=== PATIENT | female | born 1960 | race Two or more races ===

== ENCOUNTER 2023-06-03 14:14 | Inpatient (IN) | payer MEDICARE, OTHER ==
[2023-06-03] VITALS (19 sets, daily range): BP systolic 76–122; BP diastolic 42–79; TEMP 95.7; O2SAT 94–100
[~2023-06-03] VITALS: Ht 157.5 cm; Wt 122.5 kg
[2023-06-03] MEDS ORDERED: MIDODRINE HCL (5MG) 5 MG TABLET PO SCH (14:30)
[2023-06-03] MEDS ORDERED: MIDODRINE HCL (5MG) 5 MG TABLET ONE (14:46)
[2023-06-03] MEDS ORDERED: CEFEPIME 2 GM in IV D5W 50 ML IV ONE (15:00)
[2023-06-03] MEDS ORDERED: VANCOMYCIN 1 GM in IV D5W 250 ML IV ONE (15:00)
[2023-06-03] MEDS: IV NS 0.9% 500 ML BAG IV ONE ×2 (15:21→15:35)
[2023-06-03 16:29] LABS: BASOPHILS % (AUTO) 0.1 % (0.0-2.0); EOSINOPHILS % (AUTO) 0.1 % (0.0-6.0); HEMATOCRIT 24 % (33-45); HEMOGLOBIN 7.6 g/dL (11.5-14.8); LYMPHOCYTES % (AUTO) 4.4 % (20.0-44.0); MEAN CORPUSCULAR HEMOGLOBIN 31 PG (26.0-33.0); MEAN CORPUSCULAR HGB CONC 31 g/dl (31.0-36.0); MEAN CORPUSCULAR VOLUME 100 fL (82-100); MONOCYTES # (AUTO) 0.4 K/uL (0.1-1.30); MONOCYTES % (AUTO) 1.8 % (2.0-12.0); NEUTROPHILS # (AUTO) 21.7 K/uL (1.8-8.9); NEUTROPHILS % (AUTO) 93.6 % (43.0-81.0); PLATELET COUNT (AUTO) 129 K/uL (150-450); RED BLOOD CELL COUNT(AUTO) 2.44 MIL/uL (4.0-5.2); RED CELL DISTRIBUTION WIDTH 16.2 % (11.5-15.0); WHITE BLOOD COUNT (AUTO) 23.2 K/uL (4.3-11.0)
[2023-06-03] MEDS ORDERED: CEFEPIME 2 GM in IV D5W 100 ML IV ONE (16:30)
[2023-06-03] MEDS ORDERED: CLON0.1T PO (16:42)
[2023-06-03] MEDS ORDERED: DIPH25TA25 PO (16:42)
[2023-06-03] MEDS ORDERED: ATOR20TA PO (16:42)
[2023-06-03] MEDS ORDERED: ACET-868 PO (16:42)
[2023-06-03] MEDS ORDERED: BETH5TAB2 PO (16:42)
[2023-06-03] MEDS ORDERED: CALC-494 PO (16:42)
[2023-06-03] MEDS ORDERED: VANC125C11 PO (16:42)
[2023-06-03] MEDS ORDERED: LACT1CAP89 PO (16:42)
[2023-06-03] MEDS ORDERED: ASPI-1169 PO (16:42)
[2023-06-03] MEDS ORDERED: PHEN177S31 PO (16:42)
[2023-06-03] MEDS ORDERED: IPRA3AMP22 IH (16:42)
[2023-06-03] MEDS ORDERED: INSU100V39 SQ (16:42)
[2023-06-03] MEDS ORDERED: NUT.237L67 PO (16:42)
[2023-06-03] MEDS ORDERED: CARV25TA2 PO (16:42)
[2023-06-03] MEDS ORDERED: CLON1PAT TD (16:42)
[2023-06-03] MEDS ORDERED: MENT7.5L3 PO (16:42)
[2023-06-03] MEDS ORDERED: FOLI0.8T23 PO (16:42)
[2023-06-03] MEDS ORDERED: FAMO20TA8 PO (16:42)
[2023-06-03] MEDS ORDERED: TRAM100T39 PO (16:42)
[2023-06-03] MEDS ORDERED: METO5TAB2 PO (16:42)
[2023-06-03] MEDS ORDERED: PROC10TA13 PO (16:42)
[2023-06-03 16:47] LABS: ALANINE AMINOTRANSFERASE < 6 U/L (12-78); ALKALINE PHOSPHATASE 313 U/L (46-116); ASPARTATE AMINOTRANSFERASE 14 U/L (15-37); BILIRUBIN,DIRECT 0.5 mg/dL (0.0-0.2); BILIRUBIN,TOTAL 0.9 mg/dL (0.2-1.0); CALCIUM, SERUM 6.8 mg/dL (8.5-10.1); CARBON DIOXIDE 23 mmol/L (21-32); CHLORIDE 102 mmol/L (98-107); GLUCOSE 124 mg/dL (74-106); SODIUM SERUM 131 mmol/L (136-145); TOTAL PROTEIN, SERUM 3.9 g/dL (6.4-8.2); UREA NITROGEN, BLOOD 12 mg/dL (7-18)
[2023-06-03 16:49] LABS: INR 1.68 (0.91-1.10); PARTIAL THROMBOPLASTIN TIME 53.4 SEC (24.3-34.3); PROTHROMBIN TIME 17.2 SECS (9.2-11.1)
[2023-06-03 16:51] LABS: LACTIC ACID 1.3 mmol/L (0.4-2.0)
[2023-06-03] MEDS ORDERED: AZITHROMYCIN 500 MG in IV D5W 250 ML IV ONE (17:00)
[2023-06-03] MEDS ORDERED: NOREPINEPHRINE 8 MG in IV NS 0.9% 250 ML IV ONE (17:00)
[2023-06-03 17:04] LABS: ALBUMIN 1.2 g/dL (3.4-5.0); POTASSIUM 2.4 mmol/L (3.5-5.1)
[2023-06-03] MEDS ORDERED: ONDANSETRON HCL/PF 4 MG/2 ML VIAL IVP PRN (17:30)
[2023-06-03] MEDS ORDERED: POTASSIUM CHLORIDE 20 MEQ TAB.PRT.SR PO ONE (17:30)
[2023-06-03] MEDS ORDERED: PHENYLEPHRINE 100 MG in IV NS 0.9% 240 ML IV PRN (17:30)
[2023-06-03] MEDS ORDERED: MAG HYDROX/AL HYDROX/SIMETH 30 ML UDC PO PRN (17:30)
[2023-06-03] MEDS ORDERED: CLONIDINE HCL 0.1 MG TABLET PO PRN (17:30)
[2023-06-03] MEDS ORDERED: ACETAMINOPHEN 325 MG TABLET PO PRN ×2 (17:30)
[2023-06-03] MEDS ORDERED: ZOLPIDEM TARTRATE 5 MG TABLET PO PRN (17:30)
[2023-06-03] MEDS: BLOOD SUGAR DIAGNOSTIC 1 EACH STRIP IN SCH ×2 (17:30→21:32)
[2023-06-03] MEDS ORDERED: MAGNESIUM HYDROXIDE 30 ML UDC PO PRN (17:30)
[2023-06-03] MEDS ORDERED: DEXTROSE 50%-WATER 50 ML DISP.SYRIN IV PRN (17:30)
[2023-06-03] MEDS: ALBUTEROL FS 2.5 MG/0.5 ML VIAL.NEB NEB SCH (20:50)
[2023-06-03] MEDS: IPRATROPIUM NEB FS 0.5 MG/2.5 ML AMPUL.NEB NEB SCH (20:50)
[2023-06-03] MEDS: CARVEDILOL 12.5 MG TABLET PO SCH (21:00)
[2023-06-03] MEDS: NEPRO VAN 237 ML CAN PO SCH (21:00)
[2023-06-03] MEDS: NOREPINEPHRINE 8 MG in IV NS 0.9% 242 ML IV PRN (21:04)
[2023-06-03] MEDS: IV NS 0.9% 250 ML IV PRN (21:06)
[2023-06-03] MEDS: METRONIDAZOLE 500MG/ NS 100ML 500 MG in PREMIX 1 EA IV SCH (21:06)
[2023-06-03] MEDS: Z GUARD REMEDY 4 OZ OINT TP SCH (21:26)
[2023-06-03] MEDS: ATORVASTATIN 40 MG TABLET PO SCH (23:07)
[2023-06-04] VITALS (106 sets, daily range): BP systolic 64–167; BP diastolic 31–152; TEMP 97.5–98.1; O2SAT 84–100
[2023-06-04] MEDS: NOREPINEPHRINE 8 MG in IV NS 0.9% 242 ML IV PRN ×5 (00:43→17:11)
[2023-06-04] MEDS: IPRATROPIUM NEB FS 0.5 MG/2.5 ML AMPUL.NEB NEB SCH ×4 (00:45→19:33)
[2023-06-04] MEDS: ALBUTEROL FS 2.5 MG/0.5 ML VIAL.NEB NEB SCH ×4 (00:45→19:33)
[2023-06-04 04:59] LABS: BASOPHILS % (AUTO) 0.1 % (0.0-2.0); HEMATOCRIT 27 % (33-45); HEMOGLOBIN 8.6 g/dL (11.5-14.8); LYMPHOCYTES # (AUTO) 1.1 K/uL (0.8-4.8); LYMPHOCYTES % (AUTO) 3.8 % (20.0-44.0); MEAN CORPUSCULAR HEMOGLOBIN 31 PG (26.0-33.0); MEAN CORPUSCULAR HGB CONC 32 g/dl (31.0-36.0); MEAN CORPUSCULAR VOLUME 99 fL (82-100); MONOCYTES # (AUTO) 0.6 K/uL (0.1-1.30); MONOCYTES % (AUTO) 2.1 % (2.0-12.0); NEUTROPHILS # (AUTO) 27.5 K/uL (1.8-8.9); PLATELET COUNT (AUTO) 182 K/uL (150-450); RED BLOOD CELL COUNT(AUTO) 2.75 MIL/uL (4.0-5.2); RED CELL DISTRIBUTION WIDTH 16.1 % (11.5-15.0); WHITE BLOOD COUNT (AUTO) 29.3 K/uL (4.3-11.0)
[2023-06-04] MEDS ORDERED: NOREPINEPHRINE 8MG/250ML RTU 250 ML IV ONE (05:07)
[2023-06-04] MEDS: METRONIDAZOLE 500MG/ NS 100ML 500 MG in PREMIX 1 EA IV SCH ×2 (05:12→12:28)
[2023-06-04 05:23] LABS: ALANINE AMINOTRANSFERASE < 6 U/L (12-78); ALKALINE PHOSPHATASE 357 U/L (46-116); ASPARTATE AMINOTRANSFERASE 21 U/L (15-37); BILIRUBIN,TOTAL 1.1 mg/dL (0.2-1.0); CALCIUM, SERUM 7.2 mg/dL (8.5-10.1); CARBON DIOXIDE 23 mmol/L (21-32); CHLORIDE 99 mmol/L (98-107); CREATININE 3.1 mg/dL (0.6-1.3); GLUCOSE 191 mg/dL (74-106); MAGNESIUM 1.8 mg/dL (1.8-2.4); PHOSPHORUS 3.6 mg/dL (2.5-4.9); SODIUM SERUM 132 mmol/L (136-145); TOTAL PROTEIN, SERUM 4.5 g/dL (6.4-8.2); UREA NITROGEN, BLOOD 13 mg/dL (7-18)
[2023-06-04 05:31] LABS: ALBUMIN 1.4 g/dL (3.4-5.0); POTASSIUM 2.4 mmol/L (3.5-5.1)
[2023-06-04] MEDS: POTASSIUM CL. PREMIX PERIPHER. 50 ML IV SCH ×10 (06:56→16:14)
[2023-06-04] MEDS: INSULIN REGULAR, HUMAN 100 UNIT/ML 3 ML VIAL SQ PRN ×3 (08:19→18:08)
[2023-06-04] MEDS: BLOOD SUGAR DIAGNOSTIC 1 EACH STRIP IN SCH ×4 (08:21→21:34)
[2023-06-04] MEDS: ACIDOPHILUS/BULGARICUS 1 EACH TAB.CHEW PO SCH ×2 (08:36→17:56)
[2023-06-04] MEDS: BETHANECHOL CHLORIDE (25 MG) 25 MG TABLET PO SCH ×3 (08:36→17:56)
[2023-06-04] MEDS: CALCIUM CARB 600MG /VIT D 1 EACH TABLET PO SCH ×2 (08:36→17:56)
[2023-06-04] MEDS: VIT B CMPLX 3/FA/VIT C/BIOTIN 1 TAB TABLET PO SCH (08:36)
[2023-06-04] MEDS: Z GUARD REMEDY 4 OZ OINT TP SCH ×2 (08:37→21:08)
[2023-06-04] MEDS: ASPIRIN 81 MG TAB.CHEW PO SCH (08:37)
[2023-06-04] MEDS ORDERED: PANTOPRAZOLE 40 MG VIAL IV SCH (09:00)
[2023-06-04] MEDS ORDERED: VANCOMYCIN 500 MG in IV D5W 100 ML IV PRN (09:00)
[2023-06-04] MEDS: CARVEDILOL 12.5 MG TABLET PO SCH ×2 (09:00→21:00)
[2023-06-04] MEDS ORDERED: BETHANECHOL CHLORIDE 5 MG TABLET PO SCH (09:00)
[2023-06-04] MEDS: PROSOURCE / PROSTAT (PYXIS) 30 ML UDC PO SCH ×2 (12:44→17:56)
[2023-06-04] MEDS: IV NS 0.9% 250 ML IV PRN (12:56)
[2023-06-04] MEDS: DAKINS QUARTER STRENGTH (0.125%) 480 ML BOTTLE TOP SCH (15:11)
[2023-06-04] MEDS: EPOETIN ALFA-EPBX 4,000 UNIT/ML VIAL SQ SCH (15:12)
[2023-06-04] MEDS: CEFEPIME 1 GM in IV D5W 50 ML IV SCH (15:13)
[2023-06-04] MEDS ORDERED: EPOETIN ALFA-EPBX 10,000 UNIT/ML VIAL IV ONE (17:00)
[2023-06-04] MEDS: NEPRO VAN 237 ML CAN PO SCH (17:57)
[2023-06-04] MEDS: CLOTRIMAZOLE 1% 15 GM TUBE TP SCH (17:57)
[2023-06-04] MEDS: CADEXOMER IODINE 40 GM TUBE TP SCH (17:58)
[2023-06-04] MEDS: BACITRACIN ZINC OINT (15 GM) 15 GM TUBE TP SCH (18:03)
[2023-06-04] MEDS ORDERED: VANCOMYCIN 500 MG in IV D5W 100ml IV ONE (21:00)
[2023-06-04] MEDS: ATORVASTATIN 40 MG TABLET PO SCH (21:06)
[2023-06-04] MEDS: METRONIDAZOLE 500 MG TABLET PO SCH (21:06)
[2023-06-04] MEDS ORDERED: NOREPINEPHRINE 32 MG in IV NS 0.9% 250 ML IV PRN (22:00)
[2023-06-04] MEDS ORDERED: VANCOMYCIN 1 GM in IV D5W 250ml IV ONE (22:00)
[2023-06-05] VITALS (102 sets, daily range): BP systolic 86–135; BP diastolic 36–99; TEMP 97.8–98.1; O2SAT 77–100
[2023-06-05] MEDS: IPRATROPIUM NEB FS 0.5 MG/2.5 ML AMPUL.NEB NEB SCH ×4 (01:15→19:22)
[2023-06-05] MEDS: ALBUTEROL FS 2.5 MG/0.5 ML VIAL.NEB NEB SCH ×4 (01:15→19:22)
[2023-06-05 03:37] LABS: BASOPHILS % (AUTO) 0.2 % (0.0-2.0); EOSINOPHILS % (AUTO) 0.1 % (0.0-6.0); HEMATOCRIT 25 % (33-45); HEMOGLOBIN 8.1 g/dL (11.5-14.8); LYMPHOCYTES # (AUTO) 1.4 K/uL (0.8-4.8); LYMPHOCYTES % (AUTO) 6.2 % (20.0-44.0); MEAN CORPUSCULAR HEMOGLOBIN 32 PG (26.0-33.0); MEAN CORPUSCULAR HGB CONC 33 g/dl (31.0-36.0); MEAN CORPUSCULAR VOLUME 97 fL (82-100); MONOCYTES # (AUTO) 0.6 K/uL (0.1-1.30); MONOCYTES % (AUTO) 2.9 % (2.0-12.0); NEUTROPHILS # (AUTO) 20.2 K/uL (1.8-8.9); NEUTROPHILS % (AUTO) 90.6 % (43.0-81.0); PLATELET COUNT (AUTO) 160 K/uL (150-450); RED BLOOD CELL COUNT(AUTO) 2.57 MIL/uL (4.0-5.2); RED CELL DISTRIBUTION WIDTH 15.7 % (11.5-15.0); WHITE BLOOD COUNT (AUTO) 22.3 K/uL (4.3-11.0)
[2023-06-05 03:59] LABS: CALCIUM, SERUM 7.4 mg/dL (8.5-10.1); CREATININE 2.6 mg/dL (0.6-1.3); POTASSIUM 3.9 mmol/L (3.5-5.1)
[2023-06-05] MEDS: METRONIDAZOLE 500 MG TABLET PO SCH ×3 (05:06→21:10)
[2023-06-05] MEDS: INSULIN REGULAR, HUMAN 100 UNIT/ML 3 ML VIAL SQ PRN ×2 (07:58→13:03)
[2023-06-05] MEDS: BLOOD SUGAR DIAGNOSTIC 1 EACH STRIP IN SCH ×4 (07:59→21:17)
[2023-06-05] MEDS: VIT B CMPLX 3/FA/VIT C/BIOTIN 1 TAB TABLET PO SCH (08:27)
[2023-06-05] MEDS: CALCIUM CARB 600MG /VIT D 1 EACH TABLET PO SCH ×2 (08:27→17:53)
[2023-06-05] MEDS: ASPIRIN 81 MG TAB.CHEW PO SCH (08:27)
[2023-06-05] MEDS: ACIDOPHILUS/BULGARICUS 1 EACH TAB.CHEW PO SCH ×2 (08:28→17:53)
[2023-06-05] MEDS: BETHANECHOL CHLORIDE (25 MG) 25 MG TABLET PO SCH ×3 (08:29→17:53)
[2023-06-05] MEDS: PROSOURCE / PROSTAT (PYXIS) 30 ML UDC PO SCH ×3 (08:30→17:55)
[2023-06-05] MEDS: PANTOPRAZOLE 40 MG TABLET.DR PO SCH (08:36)
[2023-06-05] MEDS: DAKINS QUARTER STRENGTH (0.125%) 480 ML BOTTLE TOP SCH (09:32)
[2023-06-05] MEDS: BACITRACIN ZINC OINT (15 GM) 15 GM TUBE TP SCH ×2 (09:32→17:58)
[2023-06-05] MEDS: CLOTRIMAZOLE 1% 15 GM TUBE TP SCH ×2 (09:32→17:58)
[2023-06-05] MEDS: CADEXOMER IODINE 40 GM TUBE TP SCH (09:33)
[2023-06-05] MEDS: Z GUARD REMEDY 4 OZ OINT TP SCH ×2 (09:34→21:10)
[2023-06-05] MEDS: CARVEDILOL 12.5 MG TABLET PO SCH ×2 (09:40→20:29)
[2023-06-05] MEDS: ALBUMIN 25% 25 GM in PREMIX 1 EA IV SCH ×3 (10:59→20:55)
[2023-06-05] MEDS: IV NS 0.9% 250 ML IV PRN (11:05)
[2023-06-05] MEDS: EPOETIN ALFA-EPBX 4,000 UNIT/ML VIAL SQ SCH (15:35)
[2023-06-05] MEDS: CEFEPIME 1 GM in IV D5W 50 ML IV SCH (15:38)
[2023-06-05] MEDS: FAMOTIDINE (20 MG) 20 MG TABLET PO SCH (17:53)
[2023-06-05] MEDS: NEPRO VAN 237 ML CAN PO SCH (17:55)
[2023-06-05] MEDS ORDERED: NOREPINEPHRINE 8 MG in IV NS 0.9% 250ML IV PRN (21:00)
[2023-06-05] MEDS: ATORVASTATIN 40 MG TABLET PO SCH (21:08)
[2023-06-06] VITALS (81 sets, daily range): BP systolic 59–136; BP diastolic 30–98; TEMP 95.6–97.7; O2SAT 90–100
[2023-06-06] MEDS: ALBUTEROL FS 2.5 MG/0.5 ML VIAL.NEB NEB SCH ×4 (01:13→19:37)
[2023-06-06] MEDS: IPRATROPIUM NEB FS 0.5 MG/2.5 ML AMPUL.NEB NEB SCH ×4 (01:13→19:37)
[2023-06-06] MEDS: ALBUMIN 25% 25 GM in PREMIX 1 EA IV SCH (03:59)
[2023-06-06 04:56] LABS: BASOPHILS % (AUTO) 0.1 % (0.0-2.0); EOSINOPHILS % (AUTO) 0.1 % (0.0-6.0); LYMPHOCYTES # (AUTO) 0.9 K/uL (0.8-4.8); LYMPHOCYTES % (AUTO) 6.2 % (20.0-44.0); MEAN CORPUSCULAR HEMOGLOBIN 32 PG (26.0-33.0); MEAN CORPUSCULAR HGB CONC 32 g/dl (31.0-36.0); MEAN CORPUSCULAR VOLUME 98 fL (82-100); MONOCYTES # (AUTO) 0.3 K/uL (0.1-1.30); MONOCYTES % (AUTO) 2.3 % (2.0-12.0); NEUTROPHILS # (AUTO) 13.4 K/uL (1.8-8.9); NEUTROPHILS % (AUTO) 91.3 % (43.0-81.0); PLATELET COUNT (AUTO) 88 K/uL (150-450); RED CELL DISTRIBUTION WIDTH 16.6 % (11.5-15.0); WHITE BLOOD COUNT (AUTO) 14.7 K/uL (4.3-11.0)
[2023-06-06] MEDS: IV NS 0.9% 250 ML IV PRN ×2 (05:00→20:32)
[2023-06-06 05:05] LABS: RED BLOOD CELL COUNT(AUTO) 1.97 MIL/uL (4.0-5.2)
[2023-06-06] MEDS: METRONIDAZOLE 500 MG TABLET PO SCH ×3 (05:05→20:42)
[2023-06-06 05:06] LABS: HEMOGLOBIN 6.2 g/dL (11.5-14.8)
[2023-06-06 05:07] LABS: HEMATOCRIT 19 % (33-45)
[2023-06-06 05:12] LABS: CALCIUM, SERUM 8.8 mg/dL (8.5-10.1); CREATININE 1.9 mg/dL (0.6-1.3); POTASSIUM 3.1 mmol/L (3.5-5.1)
[2023-06-06 05:33] LABS: LYMPHOCYTES % (MANUAL) 4 % (16-48); MONOCYTES % (MANUAL) 3 % (0-11.0); NEUTROPHILS % (MANUAL) 93 (42-76)
[2023-06-06 05:34] LABS: ANISOCYTOSIS 1+; HYPOCHROMASIA 3+
[2023-06-06] MEDS: BLOOD SUGAR DIAGNOSTIC 1 EACH STRIP IN SCH ×4 (07:31→20:58)
[2023-06-06] MEDS: BETHANECHOL CHLORIDE (25 MG) 25 MG TABLET PO SCH ×3 (08:06→16:48)
[2023-06-06] MEDS: CALCIUM CARB 600MG /VIT D 1 EACH TABLET PO SCH ×2 (08:06→16:48)
[2023-06-06] MEDS: ASPIRIN 81 MG TAB.CHEW PO SCH (08:06)
[2023-06-06] MEDS: PANTOPRAZOLE 40 MG TABLET.DR PO SCH (08:06)
[2023-06-06] MEDS: ACIDOPHILUS/BULGARICUS 1 EACH TAB.CHEW PO SCH ×2 (08:06→16:48)
[2023-06-06] MEDS: VIT B CMPLX 3/FA/VIT C/BIOTIN 1 TAB TABLET PO SCH (08:06)
[2023-06-06] MEDS: CARVEDILOL 12.5 MG TABLET PO SCH (08:07)
[2023-06-06] MEDS: DAKINS QUARTER STRENGTH (0.125%) 480 ML BOTTLE TOP SCH (08:08)
[2023-06-06] MEDS: BACITRACIN ZINC OINT (15 GM) 15 GM TUBE TP SCH ×2 (08:09→17:11)
[2023-06-06] MEDS: CADEXOMER IODINE 40 GM TUBE TP SCH (08:09)
[2023-06-06] MEDS: CLOTRIMAZOLE 1% 15 GM TUBE TP SCH ×2 (08:10→16:49)
[2023-06-06] MEDS: Z GUARD REMEDY 4 OZ OINT TP SCH ×2 (08:10→20:43)
[2023-06-06] MEDS: PROSOURCE / PROSTAT (PYXIS) 30 ML UDC PO SCH ×3 (08:11→16:48)
[2023-06-06] MEDS: POTASSIUM CL. PREMIX PERIPHER. 50 ML IV SCH ×3 (11:20→13:47)
[2023-06-06] MEDS: INSULIN REGULAR, HUMAN 100 UNIT/ML 3 ML VIAL SQ PRN ×3 (11:40→20:59)
[2023-06-06] MEDS: EPOETIN ALFA-EPBX 4,000 UNIT/ML VIAL SQ SCH (14:25)
[2023-06-06] MEDS: CEFEPIME 1 GM in IV D5W 50 ML IV SCH (16:47)
[2023-06-06] MEDS: NEPRO VAN 237 ML CAN PO SCH (17:12)
[2023-06-06 19:24] LABS: HEMOGLOBIN 7.4 g/dL (11.5-14.8)
[2023-06-06] MEDS: ATORVASTATIN 40 MG TABLET PO SCH (20:42)
[2023-06-07] VITALS (20 sets, daily range): BP systolic 92–133; BP diastolic 57–85; TEMP 96.7–97.6; O2SAT 98–100
[2023-06-07] MEDS: IPRATROPIUM NEB FS 0.5 MG/2.5 ML AMPUL.NEB NEB SCH ×5 (01:07→23:13)
[2023-06-07] MEDS: ALBUTEROL FS 2.5 MG/0.5 ML VIAL.NEB NEB SCH ×4 (01:07→19:30)
[2023-06-07] MEDS: METRONIDAZOLE 500 MG TABLET PO SCH ×3 (05:55→21:40)
[2023-06-07 05:56] LABS: BASOPHILS % (AUTO) 0.1 % (0.0-2.0); EOSINOPHILS % (AUTO) 0.3 % (0.0-6.0); HEMATOCRIT 23 % (33-45); HEMOGLOBIN 7.4 g/dL (11.5-14.8); LYMPHOCYTES % (AUTO) 7.6 % (20.0-44.0); MEAN CORPUSCULAR HEMOGLOBIN 31 PG (26.0-33.0); MEAN CORPUSCULAR HGB CONC 32 g/dl (31.0-36.0); MEAN CORPUSCULAR VOLUME 95 fL (82-100); MONOCYTES # (AUTO) 0.4 K/uL (0.1-1.30); MONOCYTES % (AUTO) 2.9 % (2.0-12.0); NEUTROPHILS # (AUTO) 11.8 K/uL (1.8-8.9); NEUTROPHILS % (AUTO) 89.1 % (43.0-81.0); PLATELET COUNT (AUTO) 76 K/uL (150-450); RED BLOOD CELL COUNT(AUTO) 2.43 MIL/uL (4.0-5.2); RED CELL DISTRIBUTION WIDTH 18.5 % (11.5-15.0); WHITE BLOOD COUNT (AUTO) 13.2 K/uL (4.3-11.0)
[2023-06-07 06:54] LABS: CREATININE 2.3 mg/dL (0.6-1.3); POTASSIUM 3.2 mmol/L (3.5-5.1)
[2023-06-07 07:02] LABS: LYMPHOCYTES % (MANUAL) 10 % (16-48); MONOCYTES % (MANUAL) 3 % (0-11.0); NEUTROPHILS % (MANUAL) 87 (42-76); PLATELET ESTIMATE DECREASED
[2023-06-07 07:03] LABS: ANISOCYTOSIS 1+; HYPOCHROMASIA 1+
[2023-06-07] MEDS: BLOOD SUGAR DIAGNOSTIC 1 EACH STRIP IN SCH ×4 (08:14→21:57)
[2023-06-07] MEDS: CALCIUM CARB 600MG /VIT D 1 EACH TABLET PO SCH ×2 (09:03→17:24)
[2023-06-07] MEDS: BETHANECHOL CHLORIDE (25 MG) 25 MG TABLET PO SCH ×3 (09:03→17:24)
[2023-06-07] MEDS: ASPIRIN 81 MG TAB.CHEW PO SCH (09:03)
[2023-06-07] MEDS: VIT B CMPLX 3/FA/VIT C/BIOTIN 1 TAB TABLET PO SCH (09:03)
[2023-06-07] MEDS: ACIDOPHILUS/BULGARICUS 1 EACH TAB.CHEW PO SCH ×2 (09:03→17:24)
[2023-06-07] MEDS: PANTOPRAZOLE 40 MG TABLET.DR PO SCH (09:03)
[2023-06-07] MEDS: DAKINS QUARTER STRENGTH (0.125%) 480 ML BOTTLE TOP SCH (09:04)
[2023-06-07] MEDS: PROSOURCE / PROSTAT (PYXIS) 30 ML UDC PO SCH ×3 (09:04→17:27)
[2023-06-07] MEDS: CADEXOMER IODINE 40 GM TUBE TP SCH (09:05)
[2023-06-07] MEDS: BACITRACIN ZINC OINT (15 GM) 15 GM TUBE TP SCH ×2 (09:05→17:26)
[2023-06-07] MEDS: CLOTRIMAZOLE 1% 15 GM TUBE TP SCH ×2 (09:05→17:34)
[2023-06-07] MEDS: Z GUARD REMEDY 4 OZ OINT TP SCH ×2 (09:05→21:45)
[2023-06-07] MEDS: POTASSIUM CL. PREMIX PERIPHER. 50 ML IV SCH ×3 (11:05→13:00)
[2023-06-07] MEDS ORDERED: VANCOMYCIN 1 GM in IV D5W 250ml IV ONE (14:00)
[2023-06-07] MEDS: EPOETIN ALFA-EPBX 4,000 UNIT/ML VIAL SQ SCH (15:21)
[2023-06-07] MEDS: CEFEPIME 1 GM in IV D5W 50 ML IV SCH (16:38)
[2023-06-07] MEDS: FAMOTIDINE (20 MG) 20 MG TABLET PO SCH (17:24)
[2023-06-07] MEDS: INSULIN REGULAR, HUMAN 100 UNIT/ML 3 ML VIAL SQ PRN (17:25)
[2023-06-07] MEDS: NEPRO VAN 237 ML CAN PO SCH (18:00)
[2023-06-07] MEDS: ATORVASTATIN 40 MG TABLET PO SCH (21:26)
[2023-06-08] VITALS (9 sets, daily range): BP systolic 121–145; BP diastolic 77–89; TEMP 96.7–98.6; O2SAT 96–100
[2023-06-08] MEDS: ALBUTEROL FS 2.5 MG/0.5 ML VIAL.NEB NEB SCH ×4 (01:30→19:36)
[2023-06-08] MEDS: METRONIDAZOLE 500 MG TABLET PO SCH ×3 (04:38→21:32)
[2023-06-08] MEDS: BLOOD SUGAR DIAGNOSTIC 1 EACH STRIP IN SCH ×4 (06:33→22:36)
[2023-06-08] MEDS: IPRATROPIUM NEB FS 0.5 MG/2.5 ML AMPUL.NEB NEB SCH ×3 (07:52→19:36)
[2023-06-08 09:32] LABS: BASOPHILS % (AUTO) 0.1 % (0.0-2.0); EOSINOPHILS # (AUTO) 0.1 K/uL (0.0-0.7); EOSINOPHILS % (AUTO) 0.6 % (0.0-6.0); HEMATOCRIT 31 % (33-45); HEMOGLOBIN 10.2 g/dL (11.5-14.8); LYMPHOCYTES # (AUTO) 1.1 K/uL (0.8-4.8); LYMPHOCYTES % (AUTO) 9.8 % (20.0-44.0); MEAN CORPUSCULAR HEMOGLOBIN 31 PG (26.0-33.0); MEAN CORPUSCULAR HGB CONC 33 g/dl (31.0-36.0); MEAN CORPUSCULAR VOLUME 93 fL (82-100); MONOCYTES # (AUTO) 0.4 K/uL (0.1-1.30); MONOCYTES % (AUTO) 3.7 % (2.0-12.0); NEUTROPHILS # (AUTO) 9.6 K/uL (1.8-8.9); NEUTROPHILS % (AUTO) 85.8 % (43.0-81.0); PLATELET COUNT (AUTO) 75 K/uL (150-450); RED BLOOD CELL COUNT(AUTO) 3.34 MIL/uL (4.0-5.2); RED CELL DISTRIBUTION WIDTH 18.1 % (11.5-15.0); WHITE BLOOD COUNT (AUTO) 11.1 K/uL (4.3-11.0)
[2023-06-08] MEDS: BETHANECHOL CHLORIDE (25 MG) 25 MG TABLET PO SCH ×4 (09:44→17:37)
[2023-06-08] MEDS: CALCIUM CARB 600MG /VIT D 1 EACH TABLET PO SCH ×3 (09:44→17:37)
[2023-06-08] MEDS: ASPIRIN 81 MG TAB.CHEW PO SCH (09:44)
[2023-06-08] MEDS: DAKINS QUARTER STRENGTH (0.125%) 480 ML BOTTLE TOP SCH (09:44)
[2023-06-08] MEDS: VIT B CMPLX 3/FA/VIT C/BIOTIN 1 TAB TABLET PO SCH (09:44)
[2023-06-08] MEDS: PANTOPRAZOLE 40 MG TABLET.DR PO SCH (09:44)
[2023-06-08] MEDS: BACITRACIN ZINC OINT (15 GM) 15 GM TUBE TP SCH ×2 (09:44→17:38)
[2023-06-08] MEDS: PROSOURCE / PROSTAT (PYXIS) 30 ML UDC PO SCH ×4 (09:44→17:37)
[2023-06-08] MEDS: CADEXOMER IODINE 40 GM TUBE TP SCH (09:44)
[2023-06-08] MEDS: ACIDOPHILUS/BULGARICUS 1 EACH TAB.CHEW PO SCH ×3 (09:44→17:37)
[2023-06-08] MEDS: Z GUARD REMEDY 4 OZ OINT TP SCH ×2 (09:45→20:19)
[2023-06-08] MEDS: CLOTRIMAZOLE 1% 15 GM TUBE TP SCH ×2 (09:45→17:37)
[2023-06-08 10:06] LABS: CALCIUM, SERUM 8.9 mg/dL (8.5-10.1); CREATININE 1.9 mg/dL (0.6-1.3); POTASSIUM 3.7 mmol/L (3.5-5.1)
[2023-06-08 11:47] LABS: ANISOCYTOSIS 1+; PLATELET ESTIMATE DECREASED
[2023-06-08 11:48] LABS: OVALOCYTES 1+; TEAR DROP CELLS OCC
[2023-06-08] MEDS: EPOETIN ALFA-EPBX 4,000 UNIT/ML VIAL SQ SCH (14:42)
[2023-06-08] MEDS ORDERED: GENTAMICIN 120 MG in IV D5W 100 ML IV SCH (15:00)
[2023-06-08] MEDS ORDERED: GENTAMICIN 160 MG in IV D5W 100 ML IV SCH (15:00)
[2023-06-08] MEDS: NEPRO VAN 237 ML CAN PO SCH ×2 (17:42→17:52)
[2023-06-08] MEDS: ATORVASTATIN 40 MG TABLET PO SCH (21:32)
[2023-06-08] MEDS: INSULIN REGULAR, HUMAN 100 UNIT/ML 3 ML VIAL SQ PRN (22:36)
[2023-06-09] VITALS (11 sets, daily range): BP systolic 96–127; BP diastolic 49–81; TEMP 93.9–97.7; O2SAT 96–100
[2023-06-09] MEDS: IPRATROPIUM NEB FS 0.5 MG/2.5 ML AMPUL.NEB NEB SCH ×4 (00:35→20:08)
[2023-06-09] MEDS: ALBUTEROL FS 2.5 MG/0.5 ML VIAL.NEB NEB SCH ×4 (00:36→20:08)
[2023-06-09] MEDS: METRONIDAZOLE 500 MG TABLET PO SCH ×3 (04:01→21:32)
[2023-06-09] MEDS: BLOOD SUGAR DIAGNOSTIC 1 EACH STRIP IN SCH ×4 (06:18→21:34)
[2023-06-09] MEDS: INSULIN REGULAR, HUMAN 100 UNIT/ML 3 ML VIAL SQ PRN (06:19)
[2023-06-09 06:54] LABS: CALCIUM, SERUM 8.9 mg/dL (8.5-10.1); CREATININE 2.6 mg/dL (0.6-1.3); POTASSIUM 3.5 mmol/L (3.5-5.1)
[2023-06-09 06:59] LABS: BASOPHILS % (AUTO) 0.1 % (0.0-2.0); EOSINOPHILS # (AUTO) 0.1 K/uL (0.0-0.7); EOSINOPHILS % (AUTO) 0.6 % (0.0-6.0); HEMATOCRIT 30 % (33-45); HEMOGLOBIN 9.7 g/dL (11.5-14.8); LYMPHOCYTES % (AUTO) 8.7 % (20.0-44.0); MEAN CORPUSCULAR HEMOGLOBIN 31 PG (26.0-33.0); MEAN CORPUSCULAR HGB CONC 33 g/dl (31.0-36.0); MEAN CORPUSCULAR VOLUME 94 fL (82-100); MONOCYTES # (AUTO) 0.4 K/uL (0.1-1.30); MONOCYTES % (AUTO) 3.6 % (2.0-12.0); PLATELET COUNT (AUTO) 56 K/uL (150-450); RED BLOOD CELL COUNT(AUTO) 3.16 MIL/uL (4.0-5.2); RED CELL DISTRIBUTION WIDTH 18.7 % (11.5-15.0); WHITE BLOOD COUNT (AUTO) 11.4 K/uL (4.3-11.0)
[2023-06-09] MEDS ORDERED: GENTAMICIN 80 MG in IV D5W 50 ML IV PRN (08:00)
[2023-06-09] MEDS: PROSOURCE / PROSTAT (PYXIS) 30 ML UDC PO SCH ×3 (08:52→16:34)
[2023-06-09] MEDS: ACIDOPHILUS/BULGARICUS 1 EACH TAB.CHEW PO SCH ×2 (08:53→16:31)
[2023-06-09] MEDS: CALCIUM CARB 600MG /VIT D 1 EACH TABLET PO SCH ×2 (08:53→16:31)
[2023-06-09] MEDS: VIT B CMPLX 3/FA/VIT C/BIOTIN 1 TAB TABLET PO SCH (08:53)
[2023-06-09] MEDS: ASPIRIN 81 MG TAB.CHEW PO SCH (08:53)
[2023-06-09] MEDS: PANTOPRAZOLE 40 MG TABLET.DR PO SCH (08:53)
[2023-06-09] MEDS: BETHANECHOL CHLORIDE (25 MG) 25 MG TABLET PO SCH ×3 (08:53→16:32)
[2023-06-09] MEDS: CADEXOMER IODINE 40 GM TUBE TP SCH (08:54)
[2023-06-09] MEDS: CLOTRIMAZOLE 1% 15 GM TUBE TP SCH ×2 (08:54→16:32)
[2023-06-09] MEDS: DAKINS QUARTER STRENGTH (0.125%) 480 ML BOTTLE TOP SCH (08:54)
[2023-06-09] MEDS: BACITRACIN ZINC OINT (15 GM) 15 GM TUBE TP SCH ×2 (08:54→16:32)
[2023-06-09] MEDS: Z GUARD REMEDY 4 OZ OINT TP SCH ×2 (08:54→21:34)
[2023-06-09 11:31] LABS: PLATELET ESTIMATE DECREASED
[2023-06-09 11:32] LABS: ANISOCYTOSIS 1+; OVALOCYTES OCC; TEAR DROP CELLS OCC
[2023-06-09] MEDS: EPOETIN ALFA-EPBX 4,000 UNIT/ML VIAL SQ SCH (15:00)
[2023-06-09] MEDS: METOPROLOL TARTRATE 25 MG TABLET PO SCH ×3 (15:30→21:33)
[2023-06-09] MEDS: NEPRO VAN 237 ML CAN PO SCH (18:46)
[2023-06-09] MEDS: ATORVASTATIN 40 MG TABLET PO SCH (21:33)
[2023-06-10] VITALS (11 sets, daily range): BP systolic 81–112; BP diastolic 55–66; TEMP 97.5–98.7; O2SAT 98–100
[2023-06-10] MEDS: ALBUTEROL FS 2.5 MG/0.5 ML VIAL.NEB NEB SCH ×4 (02:08→20:04)
[2023-06-10] MEDS: IPRATROPIUM NEB FS 0.5 MG/2.5 ML AMPUL.NEB NEB SCH ×4 (02:08→20:04)
[2023-06-10] MEDS: METRONIDAZOLE 500 MG TABLET PO SCH ×3 (06:13→21:17)
[2023-06-10] MEDS: BLOOD SUGAR DIAGNOSTIC 1 EACH STRIP IN SCH ×4 (06:14→22:00)
[2023-06-10] MEDS: VIT B CMPLX 3/FA/VIT C/BIOTIN 1 TAB TABLET PO SCH (08:26)
[2023-06-10] MEDS: CALCIUM CARB 600MG /VIT D 1 EACH TABLET PO SCH ×2 (08:26→16:34)
[2023-06-10] MEDS: ACIDOPHILUS/BULGARICUS 1 EACH TAB.CHEW PO SCH ×2 (08:26→16:34)
[2023-06-10] MEDS: ASPIRIN 81 MG TAB.CHEW PO SCH (08:26)
[2023-06-10] MEDS: BETHANECHOL CHLORIDE (25 MG) 25 MG TABLET PO SCH ×3 (08:26→16:34)
[2023-06-10] MEDS: PANTOPRAZOLE 40 MG TABLET.DR PO SCH (08:29)
[2023-06-10] MEDS: METOPROLOL TARTRATE 25 MG TABLET PO SCH ×2 (09:00→21:00)
[2023-06-10] MEDS ORDERED: EPOETIN ALFA (10,000 UNIT) 10,000 UNIT/ML VIAL IV ONE (09:00)
[2023-06-10] MEDS: DAKINS QUARTER STRENGTH (0.125%) 480 ML BOTTLE TOP SCH (09:13)
[2023-06-10] MEDS: Z GUARD REMEDY 4 OZ OINT TP SCH ×2 (09:14→21:18)
[2023-06-10] MEDS: CLOTRIMAZOLE 1% 15 GM TUBE TP SCH ×2 (09:14→16:36)
[2023-06-10] MEDS: CADEXOMER IODINE 40 GM TUBE TP SCH (09:15)
[2023-06-10] MEDS: PROSOURCE / PROSTAT (PYXIS) 30 ML UDC PO SCH ×3 (09:15→16:35)
[2023-06-10] MEDS: BACITRACIN ZINC OINT (15 GM) 15 GM TUBE TP SCH ×2 (09:17→16:36)
[2023-06-10 09:53] LABS: BASOPHILS % (AUTO) 0.2 % (0.0-2.0); EOSINOPHILS # (AUTO) 0.1 K/uL (0.0-0.7); EOSINOPHILS % (AUTO) 0.8 % (0.0-6.0); HEMATOCRIT 28 % (33-45); HEMOGLOBIN 8.8 g/dL (11.5-14.8); LYMPHOCYTES # (AUTO) 1.2 K/uL (0.8-4.8); LYMPHOCYTES % (AUTO) 10.4 % (20.0-44.0); MEAN CORPUSCULAR HEMOGLOBIN 30 PG (26.0-33.0); MEAN CORPUSCULAR HGB CONC 32 g/dl (31.0-36.0); MEAN CORPUSCULAR VOLUME 95 fL (82-100); MONOCYTES # (AUTO) 0.5 K/uL (0.1-1.30); MONOCYTES % (AUTO) 4.3 % (2.0-12.0); NEUTROPHILS # (AUTO) 9.4 K/uL (1.8-8.9); NEUTROPHILS % (AUTO) 84.3 % (43.0-81.0); RED BLOOD CELL COUNT(AUTO) 2.94 MIL/uL (4.0-5.2); RED CELL DISTRIBUTION WIDTH 18.7 % (11.5-15.0); WHITE BLOOD COUNT (AUTO) 11.1 K/uL (4.3-11.0)
[2023-06-10 10:05] LABS: PLATELET COUNT (AUTO) 47 K/uL (150-450)
[2023-06-10 10:17] LABS: CALCIUM, SERUM 8.7 mg/dL (8.5-10.1); CREATININE 2.6 mg/dL (0.6-1.3); POTASSIUM 3.6 mmol/L (3.5-5.1)
[2023-06-10] MEDS ORDERED: ALBUMIN 25% 25 GM in PREMIX 1 EA IV PRN (12:00)
[2023-06-10] MEDS ORDERED: ALBUMIN 25% 12.5 GM/50 ML BOTTLE IV ONE (12:00)
[2023-06-10 13:33] LABS: ANISOCYTOSIS 1+; PLATELET ESTIMATE DECRE
[2023-06-10] MEDS: EPOETIN ALFA-EPBX 4,000 UNIT/ML VIAL SQ SCH (15:35)
[2023-06-10] MEDS: GENTAMICIN 120 MG in IV D5W 100 ML IV PRN (15:40)
[2023-06-10] MEDS: FAMOTIDINE (20 MG) 20 MG TABLET PO SCH (16:35)
[2023-06-10] MEDS: NEPRO VAN 237 ML CAN PO SCH (17:19)
[2023-06-10] MEDS: ATORVASTATIN 40 MG TABLET PO SCH (21:17)
[2023-06-11] VITALS (11 sets, daily range): BP systolic 120–132; BP diastolic 77–94; TEMP 98.2–98.6; O2SAT 94–100
[2023-06-11] MEDS: ALBUTEROL FS 2.5 MG/0.5 ML VIAL.NEB NEB SCH ×4 (02:00→19:39)
[2023-06-11] MEDS: IPRATROPIUM NEB FS 0.5 MG/2.5 ML AMPUL.NEB NEB SCH ×4 (02:00→19:39)
[2023-06-11] MEDS: METRONIDAZOLE 500 MG TABLET PO SCH ×3 (05:41→21:59)
[2023-06-11] MEDS: BLOOD SUGAR DIAGNOSTIC 1 EACH STRIP IN SCH ×4 (06:44→22:00)
[2023-06-11 06:58] LABS: CALCIUM, SERUM 9.4 mg/dL (8.5-10.1); CREATININE 2.2 mg/dL (0.6-1.3); POTASSIUM 3.3 mmol/L (3.5-5.1)
[2023-06-11] MEDS: PANTOPRAZOLE 40 MG TABLET.DR PO SCH (08:59)
[2023-06-11] MEDS: ACIDOPHILUS/BULGARICUS 1 EACH TAB.CHEW PO SCH ×2 (08:59→16:34)
[2023-06-11] MEDS: PROSOURCE / PROSTAT (PYXIS) 30 ML UDC PO SCH ×3 (08:59→16:27)
[2023-06-11] MEDS: ASPIRIN 81 MG TAB.CHEW PO SCH (08:59)
[2023-06-11] MEDS: METOPROLOL TARTRATE 25 MG TABLET PO SCH ×2 (09:00→21:59)
[2023-06-11] MEDS: CALCIUM CARB 600MG /VIT D 1 EACH TABLET PO SCH ×2 (09:00→16:33)
[2023-06-11] MEDS: BETHANECHOL CHLORIDE (25 MG) 25 MG TABLET PO SCH ×3 (09:00→16:34)
[2023-06-11] MEDS: VIT B CMPLX 3/FA/VIT C/BIOTIN 1 TAB TABLET PO SCH (09:00)
[2023-06-11] MEDS: CADEXOMER IODINE 40 GM TUBE TP SCH (09:05)
[2023-06-11] MEDS: BACITRACIN ZINC OINT (15 GM) 15 GM TUBE TP SCH ×2 (09:06→16:56)
[2023-06-11] MEDS: CLOTRIMAZOLE 1% 15 GM TUBE TP SCH ×2 (09:07→16:56)
[2023-06-11] MEDS: DAKINS QUARTER STRENGTH (0.125%) 480 ML BOTTLE TOP SCH (09:08)
[2023-06-11] MEDS: Z GUARD REMEDY 4 OZ OINT TP PRN (09:08)
[2023-06-11] MEDS ORDERED: POTASSIUM CHLORIDE 10 MEQ TABLET.SA PO ONE (10:00)
[2023-06-11] MEDS: Z GUARD REMEDY 4 OZ OINT TP SCH ×2 (10:10→22:00)
[2023-06-11 14:46] LABS: BASOPHILS # (AUTO) 0.3 K/uL (0.0-0.2); BASOPHILS % (AUTO) 2.5 % (0.0-2.0); EOSINOPHILS # (AUTO) 0.1 K/uL (0.0-0.7); EOSINOPHILS % (AUTO) 0.4 % (0.0-6.0); HEMATOCRIT 27 % (33-45); HEMOGLOBIN 8.9 g/dL (11.5-14.8); LYMPHOCYTES # (AUTO) 0.9 K/uL (0.8-4.8); LYMPHOCYTES % (AUTO) 7.7 % (20.0-44.0); MEAN CORPUSCULAR HEMOGLOBIN 31 PG (26.0-33.0); MEAN CORPUSCULAR HGB CONC 33 g/dl (31.0-36.0); MEAN CORPUSCULAR VOLUME 95 fL (82-100); MONOCYTES # (AUTO) 0.4 K/uL (0.1-1.30); MONOCYTES % (AUTO) 3.6 % (2.0-12.0); NEUTROPHILS # (AUTO) 10.1 K/uL (1.8-8.9); NEUTROPHILS % (AUTO) 85.8 % (43.0-81.0); RED BLOOD CELL COUNT(AUTO) 2.87 MIL/uL (4.0-5.2); RED CELL DISTRIBUTION WIDTH 19.5 % (11.5-15.0); WHITE BLOOD COUNT (AUTO) 11.8 K/uL (4.3-11.0)
[2023-06-11 15:15] LABS: PLATELET COUNT (AUTO) 46 K/uL (150-450)
[2023-06-11 15:45] LABS: BAND % (MANUAL) 10 % (0.0-5.0); LYMPHOCYTES % (MANUAL) 7 % (16-48); MONOCYTES % (MANUAL) 2 % (0-11.0); NEUTROPHILS % (MANUAL) 81 (42-76); PLATELET ESTIMATE DECREASED
[2023-06-11 15:46] LABS: ANISOCYTOSIS 1+; TARGET CELLS 2+
[2023-06-11] MEDS: EPOETIN ALFA-EPBX 4,000 UNIT/ML VIAL SQ SCH (16:27)
[2023-06-11] MEDS: NEPRO VAN 237 ML CAN PO SCH (17:30)
[2023-06-11] MEDS: ATORVASTATIN 40 MG TABLET PO SCH (21:59)
[2023-06-11] MEDS: INSULIN REGULAR, HUMAN 100 UNIT/ML 3 ML VIAL SQ PRN (22:12)
[2023-06-12] VITALS (10 sets, daily range): BP systolic 132–152; BP diastolic 71–101; TEMP 96.1–97.5; O2SAT 96–100
[2023-06-12] MEDS: ALBUTEROL FS 2.5 MG/0.5 ML VIAL.NEB NEB SCH ×4 (01:43→19:02)
[2023-06-12] MEDS: IPRATROPIUM NEB FS 0.5 MG/2.5 ML AMPUL.NEB NEB SCH ×4 (01:43→19:02)
[2023-06-12] MEDS: METRONIDAZOLE 500 MG TABLET PO SCH ×3 (05:49→21:42)
[2023-06-12] MEDS: BLOOD SUGAR DIAGNOSTIC 1 EACH STRIP IN SCH ×3 (07:44→18:04)
[2023-06-12] MEDS: INSULIN REGULAR, HUMAN 100 UNIT/ML 3 ML VIAL SQ PRN ×3 (07:44→18:04)
[2023-06-12 08:03] LABS: BASOPHILS % (AUTO) 0.3 % (0.0-2.0); EOSINOPHILS # (AUTO) 0.1 K/uL (0.0-0.7); EOSINOPHILS % (AUTO) 0.9 % (0.0-6.0); HEMATOCRIT 28 % (33-45); HEMOGLOBIN 9.2 g/dL (11.5-14.8); LYMPHOCYTES # (AUTO) 1.7 K/uL (0.8-4.8); LYMPHOCYTES % (AUTO) 13.4 % (20.0-44.0); MEAN CORPUSCULAR HEMOGLOBIN 31 PG (26.0-33.0); MEAN CORPUSCULAR HGB CONC 33 g/dl (31.0-36.0); MEAN CORPUSCULAR VOLUME 94 fL (82-100); MONOCYTES # (AUTO) 0.5 K/uL (0.1-1.30); MONOCYTES % (AUTO) 4.4 % (2.0-12.0); NEUTROPHILS # (AUTO) 10.1 K/uL (1.8-8.9); RED CELL DISTRIBUTION WIDTH 18.4 % (11.5-15.0); WHITE BLOOD COUNT (AUTO) 12.4 K/uL (4.3-11.0)
[2023-06-12 08:06] LABS: PLATELET COUNT (AUTO) 42 K/uL (150-450)
[2023-06-12 08:13] LABS: CALCIUM, SERUM 9.2 mg/dL (8.5-10.1); CREATININE 2.6 mg/dL (0.6-1.3); MAGNESIUM 1.9 mg/dL (1.8-2.4); PHOSPHORUS 1.1 mg/dL (2.5-4.9); POTASSIUM 3.5 mmol/L (3.5-5.1)
[2023-06-12] MEDS: METOPROLOL TARTRATE 25 MG TABLET PO SCH ×3 (09:00→21:43)
[2023-06-12 10:13] LABS: BAND % (MANUAL) 8 % (0.0-5.0); LYMPHOCYTES % (MANUAL) 12 % (16-48); MONOCYTES % (MANUAL) 3 % (0-11.0); MYELOCYTES % 1 % (0-0); NEUTROPHILS % (MANUAL) 76 (42-76); PLATELET ESTIMATE DECREASED
[2023-06-12 10:14] LABS: ANISOCYTOSIS 1+; HYPOCHROMASIA 1+; OVALOCYTES 1+; TARGET CELLS 1+
[2023-06-12] MEDS: ASPIRIN 81 MG TAB.CHEW PO SCH (11:24)
[2023-06-12] MEDS: CALCIUM CARB 600MG /VIT D 1 EACH TABLET PO SCH ×2 (11:24→18:14)
[2023-06-12] MEDS: ACIDOPHILUS/BULGARICUS 1 EACH TAB.CHEW PO SCH ×2 (11:24→18:13)
[2023-06-12] MEDS: PROSOURCE / PROSTAT (PYXIS) 30 ML UDC PO SCH ×3 (11:25→18:13)
[2023-06-12] MEDS: VIT B CMPLX 3/FA/VIT C/BIOTIN 1 TAB TABLET PO SCH (11:25)
[2023-06-12] MEDS: DAKINS QUARTER STRENGTH (0.125%) 480 ML BOTTLE TOP SCH (11:25)
[2023-06-12] MEDS: BETHANECHOL CHLORIDE (25 MG) 25 MG TABLET PO SCH ×3 (11:25→18:15)
[2023-06-12] MEDS: PANTOPRAZOLE 40 MG TABLET.DR PO SCH (11:25)
[2023-06-12] MEDS: CADEXOMER IODINE 40 GM TUBE TP SCH (11:26)
[2023-06-12] MEDS: BACITRACIN ZINC OINT (15 GM) 15 GM TUBE TP SCH ×2 (11:26→18:13)
[2023-06-12] MEDS: CLOTRIMAZOLE 1% 15 GM TUBE TP SCH ×2 (11:27→18:12)
[2023-06-12] MEDS: Z GUARD REMEDY 4 OZ OINT TP SCH ×2 (11:27→21:43)
[2023-06-12] MEDS: GENTAMICIN 120 MG in IV D5W 100 ML IV PRN (16:02)
[2023-06-12] MEDS: EPOETIN ALFA-EPBX 4,000 UNIT/ML VIAL SQ SCH (16:12)
[2023-06-12] MEDS: NEPRO VAN 237 ML CAN PO SCH (18:13)
[2023-06-12] MEDS: Z GUARD REMEDY 4 OZ OINT TP PRN (18:13)
[2023-06-12] MEDS: FAMOTIDINE (20 MG) 20 MG TABLET PO SCH (18:14)
[2023-06-12] MEDS ORDERED: POTASSIUM PHOSPHATE MM 15 MMOL in IV NS 0.9% 250 ML IV SCH (20:00)
[2023-06-12] MEDS: IV NS 0.9% 250 ML IV PRN (20:56)
[2023-06-13] VITALS (14 sets, daily range): BP systolic 110–139; BP diastolic 74–86; TEMP 97.3–98; O2SAT 91–100
[2023-06-13] MEDS: ATORVASTATIN 40 MG TABLET PO SCH ×2 (00:38→21:27)
[2023-06-13] MEDS: BLOOD SUGAR DIAGNOSTIC 1 EACH STRIP IN SCH ×5 (00:39→21:28)
[2023-06-13] MEDS: INSULIN REGULAR, HUMAN 100 UNIT/ML 3 ML VIAL SQ PRN ×4 (00:39→22:00)
[2023-06-13] MEDS: ALBUTEROL FS 2.5 MG/0.5 ML VIAL.NEB NEB SCH ×4 (03:08→19:54)
[2023-06-13] MEDS: IPRATROPIUM NEB FS 0.5 MG/2.5 ML AMPUL.NEB NEB SCH ×4 (03:08→19:54)
[2023-06-13] MEDS: METRONIDAZOLE 500 MG TABLET PO SCH ×3 (05:50→21:27)
[2023-06-13 06:25] LABS: BASOPHILS % (AUTO) 0.2 % (0.0-2.0); EOSINOPHILS # (AUTO) 0.1 K/uL (0.0-0.7); EOSINOPHILS % (AUTO) 0.4 % (0.0-6.0); HEMATOCRIT 29 % (33-45); HEMOGLOBIN 9.5 g/dL (11.5-14.8); LYMPHOCYTES # (AUTO) 1.4 K/uL (0.8-4.8); LYMPHOCYTES % (AUTO) 9.9 % (20.0-44.0); MEAN CORPUSCULAR HEMOGLOBIN 31 PG (26.0-33.0); MEAN CORPUSCULAR HGB CONC 32 g/dl (31.0-36.0); MEAN CORPUSCULAR VOLUME 95 fL (82-100); MONOCYTES # (AUTO) 0.5 K/uL (0.1-1.30); MONOCYTES % (AUTO) 3.6 % (2.0-12.0); NEUTROPHILS # (AUTO) 12.2 K/uL (1.8-8.9); NEUTROPHILS % (AUTO) 85.9 % (43.0-81.0); WHITE BLOOD COUNT (AUTO) 14.2 K/uL (4.3-11.0)
[2023-06-13 06:43] LABS: CALCIUM, SERUM 9.4 mg/dL (8.5-10.1); CREATININE 2.1 mg/dL (0.6-1.3); MAGNESIUM 1.9 mg/dL (1.8-2.4); PHOSPHORUS 1.4 mg/dL (2.5-4.9); POTASSIUM 3.6 mmol/L (3.5-5.1)
[2023-06-13 06:53] LABS: PLATELET COUNT (AUTO) 38 K/uL (150-450)
[2023-06-13] MEDS: ASPIRIN 81 MG TAB.CHEW PO SCH (08:28)
[2023-06-13] MEDS: BETHANECHOL CHLORIDE (25 MG) 25 MG TABLET PO SCH ×3 (08:28→16:19)
[2023-06-13] MEDS: PANTOPRAZOLE 40 MG TABLET.DR PO SCH (08:29)
[2023-06-13] MEDS: VIT B CMPLX 3/FA/VIT C/BIOTIN 1 TAB TABLET PO SCH (08:29)
[2023-06-13] MEDS: PROSOURCE / PROSTAT (PYXIS) 30 ML UDC PO SCH ×3 (08:29→16:19)
[2023-06-13] MEDS: ACIDOPHILUS/BULGARICUS 1 EACH TAB.CHEW PO SCH ×2 (08:29→16:19)
[2023-06-13] MEDS: CALCIUM CARB 600MG /VIT D 1 EACH TABLET PO SCH ×2 (08:29→16:19)
[2023-06-13] MEDS: METOPROLOL TARTRATE 25 MG TABLET PO SCH ×2 (08:30→21:00)
[2023-06-13] MEDS: DAKINS QUARTER STRENGTH (0.125%) 480 ML BOTTLE TOP SCH (10:29)
[2023-06-13] MEDS: Z GUARD REMEDY 4 OZ OINT TP SCH ×2 (10:30→21:28)
[2023-06-13] MEDS: CADEXOMER IODINE 40 GM TUBE TP SCH (10:30)
[2023-06-13] MEDS: BACITRACIN ZINC OINT (15 GM) 15 GM TUBE TP SCH ×2 (10:30→16:36)
[2023-06-13] MEDS: CLOTRIMAZOLE 1% 15 GM TUBE TP SCH ×2 (10:32→16:36)
[2023-06-13 12:57] LABS: PLATELET ESTIMATE DECREASED
[2023-06-13 12:58] LABS: ANISOCYTOSIS 1+; HYPOCHROMASIA 1+
[2023-06-13] MEDS: EPOETIN ALFA-EPBX 4,000 UNIT/ML VIAL SQ SCH (14:55)
[2023-06-13] MEDS ORDERED: K PHOS NEUTRAL 250 MG TABLET PO ONE (16:00)
[2023-06-13] MEDS: NEPRO VAN 237 ML CAN PO SCH (18:03)
[2023-06-14] VITALS (11 sets, daily range): BP systolic 96–122; BP diastolic 46–57; TEMP 96–98.6; O2SAT 94–100
[2023-06-14] MEDS: ALBUTEROL FS 2.5 MG/0.5 ML VIAL.NEB NEB SCH ×4 (01:26→20:32)
[2023-06-14] MEDS: IPRATROPIUM NEB FS 0.5 MG/2.5 ML AMPUL.NEB NEB SCH ×4 (01:26→20:32)
[2023-06-14] MEDS: METRONIDAZOLE 500 MG TABLET PO SCH ×3 (05:59→21:47)
[2023-06-14 06:23] LABS: BASOPHILS % (AUTO) 0.2 % (0.0-2.0); EOSINOPHILS # (AUTO) 0.1 K/uL (0.0-0.7); EOSINOPHILS % (AUTO) 0.7 % (0.0-6.0); HEMATOCRIT 28 % (33-45); HEMOGLOBIN 8.7 g/dL (11.5-14.8); LYMPHOCYTES # (AUTO) 1.5 K/uL (0.8-4.8); LYMPHOCYTES % (AUTO) 10.6 % (20.0-44.0); MEAN CORPUSCULAR HEMOGLOBIN 30 PG (26.0-33.0); MEAN CORPUSCULAR HGB CONC 31 g/dl (31.0-36.0); MEAN CORPUSCULAR VOLUME 96 fL (82-100); MONOCYTES # (AUTO) 0.4 K/uL (0.1-1.30); MONOCYTES % (AUTO) 2.9 % (2.0-12.0); NEUTROPHILS # (AUTO) 12.2 K/uL (1.8-8.9); NEUTROPHILS % (AUTO) 85.6 % (43.0-81.0); RED BLOOD CELL COUNT(AUTO) 2.93 MIL/uL (4.0-5.2); RED CELL DISTRIBUTION WIDTH 19.6 % (11.5-15.0); WHITE BLOOD COUNT (AUTO) 14.3 K/uL (4.3-11.0)
[2023-06-14 06:48] LABS: CALCIUM, SERUM 9.3 mg/dL (8.5-10.1); CREATININE 2.4 mg/dL (0.6-1.3); MAGNESIUM 1.8 mg/dL (1.8-2.4); PHOSPHORUS 1.5 mg/dL (2.5-4.9); POTASSIUM 3.2 mmol/L (3.5-5.1)
[2023-06-14 06:52] LABS: PLATELET COUNT (AUTO) 31 K/uL (150-450)
[2023-06-14] MEDS: BLOOD SUGAR DIAGNOSTIC 1 EACH STRIP IN SCH ×4 (07:48→21:48)
[2023-06-14] MEDS: INSULIN REGULAR, HUMAN 100 UNIT/ML 3 ML VIAL SQ PRN ×3 (07:49→23:16)
[2023-06-14] MEDS: METOPROLOL TARTRATE 25 MG TABLET PO SCH ×2 (09:00→21:00)
[2023-06-14] MEDS: Z GUARD REMEDY 4 OZ OINT TP SCH ×2 (09:21→21:48)
[2023-06-14] MEDS: DAKINS QUARTER STRENGTH (0.125%) 480 ML BOTTLE TOP SCH (09:21)
[2023-06-14] MEDS: CADEXOMER IODINE 40 GM TUBE TP SCH (09:21)
[2023-06-14] MEDS: PROSOURCE / PROSTAT (PYXIS) 30 ML UDC PO SCH ×3 (09:22→16:38)
[2023-06-14] MEDS: BACITRACIN ZINC OINT (15 GM) 15 GM TUBE TP SCH ×2 (09:22→16:38)
[2023-06-14] MEDS: CLOTRIMAZOLE 1% 15 GM TUBE TP SCH ×2 (09:22→16:38)
[2023-06-14] MEDS: VIT B CMPLX 3/FA/VIT C/BIOTIN 1 TAB TABLET PO SCH (09:38)
[2023-06-14] MEDS: ASPIRIN 81 MG TAB.CHEW PO SCH (09:38)
[2023-06-14] MEDS: POTASSIUM CL. PREMIX PERIPHER. 50 ML IV SCH ×3 (09:38→11:43)
[2023-06-14] MEDS: ACIDOPHILUS/BULGARICUS 1 EACH TAB.CHEW PO SCH ×2 (09:38→16:37)
[2023-06-14] MEDS: PANTOPRAZOLE 40 MG TABLET.DR PO SCH (09:38)
[2023-06-14] MEDS: BETHANECHOL CHLORIDE (25 MG) 25 MG TABLET PO SCH ×3 (09:38→16:37)
[2023-06-14] MEDS: CALCIUM CARB 600MG /VIT D 1 EACH TABLET PO SCH ×2 (09:38→16:37)
[2023-06-14] MEDS ORDERED: ALBUMIN 25% 25 GM in PREMIX 1 EA IV PRN (10:00)
[2023-06-14] MEDS: MIDODRINE HCL (5MG) 5 MG TABLET PO PRN (10:28)
[2023-06-14] MEDS ORDERED: methylPREDNISolone SOD SUCC 1,000 MG in IV NS 0.9% 250 ML IV ONE (12:00)
[2023-06-14] MEDS ORDERED: VANCOMYCIN 1 GM in IV D5W 250ml IV ONE (13:00)
[2023-06-14 14:23] LABS: PLATELET ESTIMATE DECREASED
[2023-06-14 14:24] LABS: ANISOCYTOSIS 2+
[2023-06-14] MEDS ORDERED: EPOETIN ALFA-EPBX 4,000 UNIT/ML VIAL SQ SCH (15:00)
[2023-06-14] MEDS: EPOETIN ALFA (4000 UNIT) 4,000 UNIT/ML VIAL SQ SCH (15:09)
[2023-06-14] MEDS ORDERED: K PHOS NEUTRAL 250 MG TABLET PO ONE (16:00)
[2023-06-14] MEDS: FAMOTIDINE (20 MG) 20 MG TABLET PO SCH (16:37)
[2023-06-14] MEDS: NEPRO VAN 237 ML CAN PO SCH (18:36)
[2023-06-14] MEDS: ATORVASTATIN 40 MG TABLET PO SCH (21:47)
[2023-06-15] VITALS (11 sets, daily range): BP systolic 91–104; BP diastolic 53–74; TEMP 97.2; O2SAT 99–100
[2023-06-15] MEDS: ALBUTEROL FS 2.5 MG/0.5 ML VIAL.NEB NEB SCH ×4 (01:45→19:40)
[2023-06-15] MEDS: IPRATROPIUM NEB FS 0.5 MG/2.5 ML AMPUL.NEB NEB SCH ×4 (01:45→19:41)
[2023-06-15] MEDS: METRONIDAZOLE 500 MG TABLET PO SCH ×3 (05:51→21:57)
[2023-06-15 06:51] LABS: HEMATOCRIT 29 % (33-45); HEMOGLOBIN 9.1 g/dL (11.5-14.8); LYMPHOCYTES # (AUTO) 0.9 K/uL (0.8-4.8); LYMPHOCYTES % (AUTO) 6.1 % (20.0-44.0); MEAN CORPUSCULAR HEMOGLOBIN 30 PG (26.0-33.0); MEAN CORPUSCULAR HGB CONC 32 g/dl (31.0-36.0); MEAN CORPUSCULAR VOLUME 96 fL (82-100); MONOCYTES # (AUTO) 0.2 K/uL (0.1-1.30); MONOCYTES % (AUTO) 1.1 % (2.0-12.0); NEUTROPHILS # (AUTO) 14.4 K/uL (1.8-8.9); NEUTROPHILS % (AUTO) 92.8 % (43.0-81.0); RED BLOOD CELL COUNT(AUTO) 3.03 MIL/uL (4.0-5.2); RED CELL DISTRIBUTION WIDTH 19.1 % (11.5-15.0); RETICULOCYTE COUNT 0.8 % (0.6-2.5); WHITE BLOOD COUNT (AUTO) 15.5 K/uL (4.3-11.0)
[2023-06-15 07:15] LABS: D-DIMER 1.02 mg/L(FEU (0.17-0.50); INR 2.43 (0.91-1.10); PARTIAL THROMBOPLASTIN TIME 64.6 SEC (24.3-34.3); PROTHROMBIN TIME 24.3 SECS (9.2-11.1)
[2023-06-15 07:20] LABS: CALCIUM, SERUM 8.7 mg/dL (8.5-10.1); CREATININE 2.1 mg/dL (0.6-1.3); MAGNESIUM 1.8 mg/dL (1.8-2.4); POTASSIUM 3.8 mmol/L (3.5-5.1)
[2023-06-15 07:31] LABS: THYROID STIMULATING HORMONE 6.322 uIU/mL (0.358-3.74)
[2023-06-15 07:39] LABS: PLATELET COUNT (AUTO) 31 K/uL (150-450)
[2023-06-15] MEDS: BLOOD SUGAR DIAGNOSTIC 1 EACH STRIP IN SCH ×4 (07:45→22:08)
[2023-06-15] MEDS: INSULIN REGULAR, HUMAN 100 UNIT/ML 3 ML VIAL SQ PRN ×4 (07:46→22:11)
[2023-06-15] MEDS: Z GUARD REMEDY 4 OZ OINT TP SCH ×2 (08:28→21:58)
[2023-06-15] MEDS: CADEXOMER IODINE 40 GM TUBE TP SCH (08:28)
[2023-06-15] MEDS: BACITRACIN ZINC OINT (15 GM) 15 GM TUBE TP SCH ×2 (08:28→16:51)
[2023-06-15] MEDS: DAKINS QUARTER STRENGTH (0.125%) 480 ML BOTTLE TOP SCH (08:28)
[2023-06-15] MEDS: CLOTRIMAZOLE 1% 15 GM TUBE TP SCH ×2 (08:29→16:51)
[2023-06-15] MEDS: BETHANECHOL CHLORIDE (25 MG) 25 MG TABLET PO SCH ×3 (08:35→16:39)
[2023-06-15] MEDS: VIT B CMPLX 3/FA/VIT C/BIOTIN 1 TAB TABLET PO SCH (08:35)
[2023-06-15] MEDS: PANTOPRAZOLE 40 MG TABLET.DR PO SCH (08:35)
[2023-06-15] MEDS: ACIDOPHILUS/BULGARICUS 1 EACH TAB.CHEW PO SCH ×2 (08:35→16:39)
[2023-06-15] MEDS: CALCIUM CARB 600MG /VIT D 1 EACH TABLET PO SCH ×2 (08:35→16:40)
[2023-06-15] MEDS: PROSOURCE / PROSTAT (PYXIS) 30 ML UDC PO SCH ×3 (08:35→16:51)
[2023-06-15] MEDS: METOPROLOL TARTRATE 25 MG TABLET PO SCH ×2 (08:44→21:00)
[2023-06-15 09:30] LABS: RHEUMATOID FACTOR SCREEN NEGATIVE (NEGATIVE)
[2023-06-15 10:11] LABS: ANISOCYTOSIS 2+; BAND % (MANUAL) 3 % (0.0-5.0); EOSINOPHILS % (MANUAL) 1 % (0-4); LYMPHOCYTES % (MANUAL) 3 % (16-48); NEUTROPHILS % (MANUAL) 93 (42-76); PLATELET ESTIMATE DECREASED
[2023-06-15 10:12] LABS: TARGET CELLS 1+
[2023-06-15 10:13] LABS: OVALOCYTES OCC
[2023-06-15] MEDS: EPOETIN ALFA (4000 UNIT) 4,000 UNIT/ML VIAL SQ SCH (14:32)
[2023-06-15] MEDS ORDERED: PHYTONADIONE INJ 10 MG/1 ML AMPUL SQ SCH (15:00)
[2023-06-15] MEDS ORDERED: K PHOS NEUTRAL 250 MG TABLET PO ONE (16:00)
[2023-06-15] MEDS: NEPRO VAN 237 ML CAN PO SCH (17:30)
[2023-06-15] MEDS ORDERED: VANCOMYCIN POST DIALYSIS 500MG IV PRN ×2 (18:30)
[2023-06-15 18:39] LABS: ALANINE AMINOTRANSFERASE < 6 U/L (12-78); ALBUMIN 1.6 g/dL (3.4-5.0); ALKALINE PHOSPHATASE 780 U/L (46-116); ASPARTATE AMINOTRANSFERASE 22 U/L (15-37); BILIRUBIN,DIRECT 1.1 mg/dL (0.0-0.2); BILIRUBIN,TOTAL 1.9 mg/dL (0.2-1.0); TOTAL PROTEIN, SERUM 4.9 g/dL (6.4-8.2)
[2023-06-15] MEDS ORDERED: VANCOMYCIN 1 GM in IV D5W 250ml IV ONE (19:00)
[2023-06-15 19:10] LABS: HIV-1 p24 ANTIGEN NON REACTIVE (NONREACTIVE); HIV-1/2 ANTIBODY NON REACTIVE (NONREACTIVE)
[2023-06-15] MEDS: ATORVASTATIN 40 MG TABLET PO SCH (21:58)
[2023-06-16] VITALS (9 sets, daily range): BP systolic 112; BP diastolic 76; TEMP 94.3; O2SAT 95–100
[2023-06-16] MEDS: IPRATROPIUM NEB FS 0.5 MG/2.5 ML AMPUL.NEB NEB SCH ×4 (01:57→19:53)
[2023-06-16] MEDS: ALBUTEROL FS 2.5 MG/0.5 ML VIAL.NEB NEB SCH ×4 (01:57→19:53)
[2023-06-16] MEDS: METRONIDAZOLE 500 MG TABLET PO SCH ×3 (05:58→20:41)
[2023-06-16 06:36] LABS: BASOPHILS % (AUTO) 0.2 % (0.0-2.0); HEMATOCRIT 29 % (33-45); HEMOGLOBIN 9.1 g/dL (11.5-14.8); LYMPHOCYTES # (AUTO) 1.3 K/uL (0.8-4.8); LYMPHOCYTES % (AUTO) 8.3 % (20.0-44.0); MEAN CORPUSCULAR HEMOGLOBIN 30 PG (26.0-33.0); MEAN CORPUSCULAR HGB CONC 32 g/dl (31.0-36.0); MEAN CORPUSCULAR VOLUME 95 fL (82-100); MONOCYTES # (AUTO) 0.3 K/uL (0.1-1.30); MONOCYTES % (AUTO) 2.1 % (2.0-12.0); NEUTROPHILS # (AUTO) 13.9 K/uL (1.8-8.9); NEUTROPHILS % (AUTO) 89.4 % (43.0-81.0); RED BLOOD CELL COUNT(AUTO) 3.02 MIL/uL (4.0-5.2); RED CELL DISTRIBUTION WIDTH 18.5 % (11.5-15.0); WHITE BLOOD COUNT (AUTO) 15.6 K/uL (4.3-11.0)
[2023-06-16] MEDS: BLOOD SUGAR DIAGNOSTIC 1 EACH STRIP IN SCH ×4 (06:36→21:56)
[2023-06-16] MEDS: INSULIN REGULAR, HUMAN 100 UNIT/ML 3 ML VIAL SQ PRN ×3 (06:37→22:25)
[2023-06-16 07:27] LABS: PLATELET COUNT (AUTO) 41 K/uL (150-450)
[2023-06-16 07:42] LABS: CALCIUM, SERUM 8.5 mg/dL (8.5-10.1); CREATININE 2.6 mg/dL (0.6-1.3); MAGNESIUM 1.8 mg/dL (1.8-2.4); PHOSPHORUS 1.8 mg/dL (2.5-4.9); POTASSIUM 3.4 mmol/L (3.5-5.1)
[2023-06-16] MEDS: ACIDOPHILUS/BULGARICUS 1 EACH TAB.CHEW PO SCH ×2 (08:46→16:22)
[2023-06-16] MEDS: PANTOPRAZOLE 40 MG TABLET.DR PO SCH (08:46)
[2023-06-16] MEDS: BETHANECHOL CHLORIDE (25 MG) 25 MG TABLET PO SCH ×3 (08:46→16:22)
[2023-06-16] MEDS: PROSOURCE / PROSTAT (PYXIS) 30 ML UDC PO SCH ×3 (08:47→16:23)
[2023-06-16] MEDS: CALCIUM CARB 600MG /VIT D 1 EACH TABLET PO SCH ×2 (08:47→16:23)
[2023-06-16] MEDS: METOPROLOL TARTRATE 25 MG TABLET PO SCH ×2 (08:47→20:40)
[2023-06-16] MEDS: VIT B CMPLX 3/FA/VIT C/BIOTIN 1 TAB TABLET PO SCH (08:47)
[2023-06-16] MEDS: CADEXOMER IODINE 40 GM TUBE TP SCH (09:07)
[2023-06-16] MEDS: Z GUARD REMEDY 4 OZ OINT TP SCH ×2 (09:07→20:49)
[2023-06-16] MEDS: BACITRACIN ZINC OINT (15 GM) 15 GM TUBE TP SCH ×2 (09:07→17:18)
[2023-06-16] MEDS: CLOTRIMAZOLE 1% 15 GM TUBE TP SCH ×2 (09:07→17:19)
[2023-06-16 10:07] LABS: *ANA ANTI-CENTROMERE B AB <0.2 AI (0.0-0.9); *ANA ANTI-DNA(DS) AB, QN 1 IU/mL (0-9); *ANA ANTI-JO-1 <0.2 AI (0.0-0.9); *ANA ANTICHROMATIN ANTIBODY <0.2 AI (0.0-0.9); *ANA RNP ANTIBODIES 0.4 AI (0.0-0.9); *ANA SJOGREN'S ANTI-SS-A <0.2 AI (0.0-0.9); *ANA SJOGREN'S ANTI-SS-B <0.2 AI (0.0-0.9); *ANAANTI-SCLERODERMA-70 AB <0.2 AI (0.0-0.9); *ANASMITH AB <0.2 AI (0.0-0.9)
[2023-06-16] MEDS ORDERED: K PHOS NEUTRAL 250 MG TABLET PO ONE (11:00)
[2023-06-16 11:07] LABS: HAPTOGLOBIN 71 mg/dL (37-355); IMMUNOGLOBULIN A, SERUM 944 mg/dL (87-352); IMMUNOGLOBULIN G, SERUM 1019 mg/dL (586-1602); IMMUNOGLOBULIN M, SERUM 49 mg/dL (26-217)
[2023-06-16] MEDS: POTASSIUM CL. PREMIX PERIPHER. 50 ML IV SCH ×2 (11:28→12:29)
[2023-06-16] MEDS: DAKINS QUARTER STRENGTH (0.125%) 480 ML BOTTLE TOP SCH (12:31)
[2023-06-16] MEDS ORDERED: GENTAMICIN 120 MG in IV D5W 100 ML IV ONE (14:00)
[2023-06-16] MEDS ORDERED: NEUTRA PHOS 1 POWD.PACKET PO ONE (15:00)
[2023-06-16] MEDS: EPOETIN ALFA (4000 UNIT) 4,000 UNIT/ML VIAL SQ SCH (15:14)
[2023-06-16 16:49] LABS: D-DIMER 1.33 mg/L(FEU (0.17-0.50); INR 1.79 (0.91-1.10); PARTIAL THROMBOPLASTIN TIME 63.3 SEC (24.3-34.3); PROTHROMBIN TIME 18.3 SECS (9.2-11.1)
[2023-06-16] MEDS: NEPRO VAN 237 ML CAN PO SCH (17:26)
[2023-06-16 19:15] LABS: ANISOCYTOSIS 1+; BAND % (MANUAL) 2 % (0.0-5.0); LYMPHOCYTES % (MANUAL) 6 % (16-48); MONOCYTES % (MANUAL) 1 % (0-11.0); NEUTROPHILS % (MANUAL) 91 (42-76); PLATELET ESTIMATE DECREASED; TARGET CELLS 1+
[2023-06-16 19:16] LABS: OVALOCYTES 1+
[2023-06-16] MEDS: MIDODRINE HCL (5MG) 5 MG TABLET PO PRN (21:26)
[2023-06-16] MEDS: ATORVASTATIN 40 MG TABLET PO SCH (21:33)
[2023-06-16] MEDS ORDERED: CALCIUM CHLORIDE 1,000 MG/10 ML DISP.SYRIN IV ONE (23:00)
[2023-06-16] MEDS ORDERED: EPINEPHRINE (1:10,000) SYRINGE 1 MG/10 ML DISP.SYRIN IVP ONE (23:00)
[2023-06-16] MEDS ORDERED: Sodium Bicarbonate 50 MEQ/50 ML VIAL IV ONE (23:00)
[2023-06-16] MEDS ORDERED: CALCIUM CHLORIDE 1,000 MG/10 ML DISP.SYRIN ONE (23:38)
[2023-06-17] VITALS (18 sets, daily range): BP systolic 47–207; BP diastolic 20–133; TEMP 93.7–94.2; O2SAT 31–100
[2023-06-17] MEDS ORDERED: NOREPINEPHRINE 32 MG in IV NS 0.9% 218 ML IV PRN ×2
[2023-06-17] MEDS ORDERED: PHENYLEPHRINE 100 MG in IV NS 0.9% 240 ML IV PRN ×2
[2023-06-17] MEDS ORDERED: PHENYLEPHRINE 10 MG/ML VIAL ONE (00:07)
[2023-06-17] MEDS ORDERED: AMIODARONE 150 MG/3 ML VIAL IV ONE ×2 (00:17→00:19)
[2023-06-17] MEDS ORDERED: AMIODARONE 150 MG in IV D5W 100 ML IV ONE (00:30)
[2023-06-17] MEDS ORDERED: AMIODARONE 450 MG in IV D5W 241 ML IV PRN (00:30)
[2023-06-17] MEDS ORDERED: VASOPRESSIN INJ 40 UNIT in IV NS 0.9% 38 ML IV PRN (02:00)
[2023-06-17] MEDS ORDERED: VASOPRESSIN INJ 20 UNIT/ML VIAL ONE (02:24)
[2023-06-17 02:38] LABS: ABG BASE EXCESS -11.6 mmol/L; ABG PCO2 29.4 mmHg (35.0-45.0); ABG PH 7.288 (7.350-7.450); ABG PO2 52.2 mmHg (75.0-100.0); ABG TOTAL HEMOGLOBIN 10.4 G/dL (12.0-16.0); AaDO2 631.4 mmHg; COHb 0.4 % (0.5-1.5); MetHb 0.1 % (0.0-1.5); O2Hb 82.6 % (94.0-97.0); SITE, ABG Right Radial
[2023-06-17] MEDS: ALBUTEROL FS 2.5 MG/0.5 ML VIAL.NEB NEB SCH (02:43)
[2023-06-17] MEDS: IPRATROPIUM NEB FS 0.5 MG/2.5 ML AMPUL.NEB NEB SCH (02:43)
[2023-06-17] MEDS ORDERED: EPINEPHRINE (1:10,000) SYRINGE 1 MG/10 ML DISP.SYRIN ONE (03:13)
[2023-06-17] MEDS ORDERED: EPINEPHRINE (1:10,000) SYRINGE 1 MG/10 ML DISP.SYRIN IVP ONE (05:29)
[2023-06-17] MEDS ORDERED: CALCIUM CHLORIDE 1,000 MG/10 ML DISP.SYRIN IV ONE (05:29)
[2023-06-17] MEDS ORDERED: Sodium Bicarbonate 50 MEQ/50 ML VIAL IV ONE (05:29)
[2023-06-17 07:06] LABS: *SPE A/G RATIO 0.8 (0.7-1.7); *SPE ALBUMIN 1.9 g/dL (2.9-4.4); *SPE ALPHA-1-GLOBULIN 0.2 g/dL (0.0-0.4); *SPE ALPHA-2-GLOBULIN 0.4 g/dL (0.4-1.0); *SPE GLOBULIN, TOTAL 2.5 g/dL (2.2-3.9); *SPE M-SPIKE Not Observed g/dL (Not Observed); *SPE PROTEIN TOTAL 4.4 g/dL (6.0-8.5); *SPEGAMMA GLOBULIN 0.9 g/dL (0.4-1.8)
[2023-06-17 08:06] LABS: FREE KAPPA LT CHAINS SERUM 226.4 mg/L (3.3-19.4); FREE LAMBDA LT CHAIN SERUM 165.8 mg/L (5.7-26.3); KAPPA/LAMBDA RATIO SERUM 1.37 (0.26-1.65)
[2023-06-20 19:06] LABS: FOLIC ACID 12.8 ng/mL (>3.0)
== END 2023-06-17 05:30 | DRG 871 ==
LOC: ER 14:19 → ICU 18:31 → MED 06-07 15:44 → TELE 06-07 15:46 → MED 06-08 12:17 → ICU 06-16 23:49
PROVIDERS: ADMIT Nurse Practitioner Acute Care; ATTEND Nurse Practitioner Acute Care
PROC: 02HV33Z Insertion of Infusion Device into Superior Vena Cava, Percutaneous Approach (ICD-10-PCS; principal; 2023-06-03)
PROC: B548ZZA Ultrasonography of Superior Vena Cava, Guidance (ICD-10-PCS; 2023-06-03)
PROC: 5A1D70Z Performance of Urinary Filtration, Intermittent, Less than 6 Hours Per Day (ICD-10-PCS; 2023-06-04)
PROC: 30233N1 Transfusion of Nonautologous Red Blood Cells into Peripheral Vein, Percutaneous Approach (ICD-10-PCS; 2023-06-06)
PROC: 5A1935Z Respiratory Ventilation, Less than 24 Consecutive Hours (ICD-10-PCS; 2023-06-17)
PROC: 0BH17EZ Insertion of Endotracheal Airway into Trachea, Via Natural or Artificial Opening (ICD-10-PCS; 2023-06-17)
PROC: 5A2204Z Restoration of Cardiac Rhythm, Single (ICD-10-PCS; 2023-06-17)
DX: A41.9 Sepsis, unspecified organism (principal); E43 Unspecified severe protein-calorie malnutrition; J15.9 Unspecified bacterial pneumonia; N18.6 End stage renal disease; R65.21 Severe sepsis with septic shock; I50.33 Acute on chronic diastolic (congestive) heart failure; J96.00 Acute respiratory failure, unspecified whether with hypoxia or hypercapnia; R53.2 Functional quadriplegia; I21.A1 Myocardial infarction type 2; J69.0 Pneumonitis due to inhalation of food and vomit; K83.1 Obstruction of bile duct; I13.2 Hypertensive heart and chronic kidney disease with heart failure and with stage 5 chronic kidney disease, or end stage renal disease; E87.1 Hypo-osmolality and hyponatremia; D68.59 Other primary thrombophilia; D61.818 Other pancytopenia; Z68.41 Body mass index [BMI] 40.0-44.9, adult; J98.11 Atelectasis; L03.116 Cellulitis of left lower limb; G93.40 Encephalopathy, unspecified; F03.90 Unspecified dementia, unspecified severity, without behavioral disturbance, psychotic disturbance, mood disturbance, and anxiety; Z66 Do not resuscitate; E11.22 Type 2 diabetes mellitus with diabetic chronic kidney disease; E11.42 Type 2 diabetes mellitus with diabetic polyneuropathy; E78.5 Hyperlipidemia, unspecified; Z74.01 Bed confinement status; Z79.4 Long term (current) use of insulin; Z79.51 Long term (current) use of inhaled steroids; Z79.899 Other long term (current) drug therapy; Z79.82 Long term (current) use of aspirin; Z99.2 Dependence on renal dialysis; E87.6 Hypokalemia; E83.51 Hypocalcemia; E88.09 Other disorders of plasma-protein metabolism, not elsewhere classified; I27.81 Cor pulmonale (chronic); I46.9 Cardiac arrest, cause unspecified; I48.0 Paroxysmal atrial fibrillation; D63.1 Anemia in chronic kidney disease; I95.3 Hypotension of hemodialysis; D69.6 Thrombocytopenia, unspecified; L89.159 Pressure ulcer of sacral region, unspecified stage; K21.9 Gastro-esophageal reflux disease without esophagitis; Z86.73 Personal history of transient ischemic attack (TIA), and cerebral infarction without residual deficits; E66.9 Obesity, unspecified; I70.0 Atherosclerosis of aorta; L89.90 Pressure ulcer of unspecified site, unspecified stage; L89.222 Pressure ulcer of left hip, stage 2; L89.212 Pressure ulcer of right hip, stage 2; E80.6 Other disorders of bilirubin metabolism; Z79.84 Long term (current) use of oral hypoglycemic drugs; Z86.19 Personal history of other infectious and parasitic diseases; F41.9 Anxiety disorder, unspecified; R91.1 Solitary pulmonary nodule; S91.301A Unspecified open wound, right foot, initial encounter; X58.XXXA Exposure to other specified factors, initial encounter; Y92.9 Unspecified place or not applicable; S81.802A Unspecified open wound, left lower leg, initial encounter; L89.150 Pressure ulcer of sacral region, unstageable; L98.9 Disorder of the skin and subcutaneous tissue, unspecified; I49.9 Cardiac arrhythmia, unspecified
CPT/HCPCS: 31720; 36415; 36600; 71045-TC; 71250-TC; 76700-TC; 80048-TC; 80053-TC; 80076-TC; 80170-TC; 80202-TC; 82533; 82607-TC; 82728-TC; 82784; 82803-TC; 82962-TC; 83010; 83540-TC; 83605-TC; 83735-TC; 83880; 84100-TC; 84155; 84165; 84439-TC; 84443-TC; 84484-TC; 85025-TC; 85027-TC; 85045-TC; 85396; 85730-TC; 86140-TC; 86225; 86235; 86334; 86431-TC; 86706; 86803; 86850-TC; 87040-TC; 87081-TC; 87340; 87806; 90935-TC; 92950-TC; 93307-TC; 94002-TC; 94799-TC; A4216; A4223; A6253; A6403; C9113; G0378; J0171; J0282; J0692; J0885; J1580; J1815; J2930; J3370; J3430; J3480; J3490; J7030; J7040; J7050; J7060; P9016; P9047